=== PATIENT | male | born 1945 ===

== ENCOUNTER 2016-11-04 09:56 | Emergency (ER) | payer MEDICARE ==
[~2016-11-04 09:56] MED LIST: ASPI325T10 PO; ATEN-102 PO; LISI-360 PO; METF1000 PO; MULTTAB50; NOVO7030P2 SQ; SIMV80TA PO; VITA400T2
[2016-11-04 09:59] VITALS: BP 127/60; PULSE 86; RESP 15; TEMP 98.4; O2SAT 99
[2016-11-04] MEDS ORDERED: EMPA1TAB3 PO (11:19)
[2016-11-04] MEDS ORDERED: ATEN50TA PO (11:19)
[2016-11-04] MEDS ORDERED: LANTUS2P SQ (11:19)
[2016-11-04] MEDS ORDERED: MULTTAB67 PO (11:19)
[2016-11-04] MEDS ORDERED: VITA1000 PO (11:19)
[2016-11-04] MEDS ORDERED: ASPI81TA11 PO (11:19)
[2016-11-04] MEDS ORDERED: ATOR20TA15 PO (11:19)
[2016-11-04] MEDS ORDERED: OMEP20TA PO (11:19)
[2016-11-04] MEDS ORDERED: NOVOLOGP2 SQ ×2 (11:19)
[2016-11-04] MEDS ORDERED: TRAD5TAB PO (11:19)
--- NOTE | 2016-11-04 11:21 | PD ---
HPI Chief Complaint: Medical Clearance Time Seen by Provider: 11:04 Travel History International Travel<30 days: No Contact w/Intl Traveler<30days: No Traveled to known affect area: No History of Present Illness HPI This is a 71 year old male who presents to the emergency department with low blood pressure. He was being seen at his primary care doctor appointment for low back pain and he was hoping he could get "laser surgery" on his back when he was noted to have low blood pressure. His blood pressure was in the 90s systolic. He was completely asymptomatic with no lightheadedness, dizziness, chest pain or shortness of breath. They also noted that his oxygen saturation was 93% on the low side and they were concerned for possible pulmonary embolism or ischemic events of the referred him to the emergency department. Here in the emergency department the patient continues to be completely asymptomatic. He denies any chest pain, lightheadedness, dizziness or shortness of breath. He does acknowledge that he took his blood pressure medication this morning when he woke up. He takes 50 mg of atenolol every day. PFSH Past Medical History Cancer: No Cardiovascular Problems: Yes Diabetes: Yes Patient Takes Glucophage: No Endocrine: Yes Genitourinary: No Hepatitis: No Hiatal Hernia: Yes (UMBILICAL) Hypertension: Yes Immune Disorder: No Musculoskeletal: Yes (arthritis) Neurologic: No Psychiatric: No Respiratory: No Myocardial Infarction: Yes (X2) Thyroid Disease: No Influenza Vaccination: Yes Past Surgical History Abdominal Surgery: Yes (UMBILICAL HERNIA) Joint Replacement: Yes (amanda knees) Pacemaker: No Social History Alcohol Use: Yes (RARELY) Tobacco Use: No Substance Use: No Allergies-Medications (Allergen,Severity, Reaction): Coded Allergies: No Known Allergies (Unverified , 02/02/13) Reported Meds & Prescriptions Reported Meds & Active Scripts Active Reported Vitamin D (Cholecalciferol) 400 Unit Tab 500 DAILY Lisinopril 10 Mg Tab 10 Mg PO DAILY Metformin HCl 1,000 Mg Tab 1,000 Mg PO BID Aspirin Ec (Aspirin) 325 Mg Tab 325 Mg PO DAILY Novolin 70/30 (Insulin Human Isoph/Insulin Regular) 100 Units/Ml Inj 96 Units SQ BID Atenolol 50 Mg Tab 50 Mg PO DAILY Multi Vitamin Mens (Multiple Vitamin) Mens Tab DAILY Simvastatin 80 Mg Tab 80 Mg PO HS Review of Systems Except as stated in HPI: all other systems reviewed are Neg Physical Exam Narrative GENERAL:Well appearing, no acute distress SKIN: Focused skin assessment warm and dry. HEAD: Atraumatic. Normocephalic. EYES: Pupils equal and round. No injection or drainage. ENT: Moist mucous membranes NECK: Trachea midline. CARDIOVASCULAR: Regular rate and rhythm. No murmur appreciated. RESPIRATORY: Clear to auscultation. Breath sounds equal bilaterally. GASTROINTESTINAL: Abdomen soft, non-tender, nondistended. MUSCULOSKELETAL: No obvious deformities. NEUROLOGICAL: Awake and alert. No obvious cranial nerve deficits. Moving all extremities. PSYCHIATRIC: Appropriate mood and affect; insight and judgment normal. Data Data Last Documented VS Vital Signs Date Time Temp Pulse Resp B/P (MAP) Pulse Ox O2 Delivery O2 Flow Rate FiO2 11/04/16 09:59 98.4 86 15 127/60 (82) 99 MDM Medical Decision Making Medical Screen Exam Complete: Yes Emergency Medical Condition: Yes Interpretation(s) Afebrile, no tachycardia, normotensive, 99% on room air Differential Diagnosis Pulmonary embolism, dehydration, congestive heart failure, medication effect Narrative Course This is a 71-year-old male who presents to the emergency department having been referred from his primary care office for low blood pressure. He is completely asymptomatic. He is well-appearing and here in the emergency department he has normal vital signs. I had a long conversation with the patient. I don't think any further testing is warranted. I suspect he had a incidentally low blood pressure related to his medications. I think it's reasonable to decrease his atenolol level to 25 mg daily and he can follow-up with Dr. Hawkins in 1 week to have a repeat check. I did advise him if he develops any symptoms at all including chest pain, lightheadedness, shortness of breath or dizziness he should return to the emergency department at which time we will do a more thorough workup. He is amenable to this plan. Diagnosis Primary Impression: Hypotension due to medication Patient Instructions: General Instructions Additional Instructions: If you develop severe chest pain, shortness of breath, sweating, lightheadedness , dizziness or difficulty breathing return to the emergency department immediately. Follow-up with your doctor in 1 week for repeat blood pressure check. Decrease your atenolol dose to 25 mg a day. Med/Other Pt SpecificInfo: Existing Med Changed (atenolol 25 mg daily) Disposition: 01 DISCHARGE HOME Condition: Stable Cheyenne Interiano MD Nov 04, 2016 11:21
== END 2016-11-04 11:35 | disposition home or self-care (01) ==
LOC: NEPE 09:56
DX: I95.2 Hypotension due to drugs (principal); E11.9 Type 2 diabetes mellitus without complications; I10 Essential (primary) hypertension; M19.90 Unspecified osteoarthritis, unspecified site; I25.2 Old myocardial infarction; Z79.4 Long term (current) use of insulin; Z79.899 Other long term (current) drug therapy; Z79.82 Long term (current) use of aspirin
CPT/HCPCS: 99282